=== PATIENT | male | born 1955 | race Caucasian/White ===

== ENCOUNTER 2024-12-27 14:58 | Outpatient (AMB) | payer MEDICARE, SELFPAY ==
--- OUTSIDE RECORDS SUMMARY | 2024-12-27 16:18 | XMS_ITS | Clinical Summary ---
Author Organization [facility] Address [address] [facility] [address] [place] [address] Phone Care Team Providers Care Personal Financial Representative Name Role Phone Aaron Brown MD Unavailable Dana Saunders MD Unavailable [phone] Aaron Durbin MD Unavailable [phone] Pcp, Unknown Primary Care Provider Unavailabl e Allergies Active Allergy Reactions Criticality Noted Date Comments Cat Dander 04/29/2020 Dog Dander 04/29/2020 House Dust Medium 04/29/2020 Gluten Protein Diarrhea,GI Upset,Nausea and/or Vomiting 06/06/2020 Sensitivity House Dust Mite 09/04/2024 Other Reaction(s): Headaches Mold Headaches 09/04/2024 Mold Extracts Medium 04/29/2020 Prednisone Erythema Low 02/25/2021 Medications zinc sulfate (ZINC-15 ORAL) Take by mouth daily. Active ascorbic acid (VITAMIN C ORAL) Take by mouth daily. Active MAGNESIUM ORAL Take by mouth nightly at bedtime. Active metoprolol succinate (TOPROL-XL) 25 MG 24 hr tablet Take 1 tablet (25 mg total) by mouth daily. 30 tablet 2 Active Additional Information Patient taking differently:25 mg Oral2 times daily PRN, Reported on 02/25/2021 apixaban (ELIQUIS) 5 mg tablet Take 5 mg by mouth 2 (two) times a day. Active omeprazole (PRILOSEC) 40 MG capsule Take 1 capsule (40 mg total) by mouth daily. 42 capsule 1 Active fexofenadine (ALTAGRACIA) 60 MG tablet Take 90 mg by mouth daily. Active cholecalciferol (VITAMIN D3) 5,000 unit tablet Take 1,000 Units by mouth daily. Active acetylcysteine (NAC) 600 mg Cap capsule Take 700 mg by mouth every 4 (four) hours. Active cyanocobalamin/f olic ac/vit B6 (HOMOCYSTEINE FORMULA ORAL) Take by mouth. A ctive ashwagandha root extract 500 mg Cap Take by mouth. Activ e inhaler,assist device,med mask (AEROCHAMBER MIS) See Instructions, # 1 kit, Maintenance, Use with inhaler, 05/31/24 3:11:00 PM EST, Supply, 185.42, cm, 05/31/24 15:03:00 EST, Height 5 Active REPATHA SURECLICK 140 mg/mL PnIj subcutaneous pen injector Inject 140 mg under the skin. 5 Active albuterol 90 mcg/actuation inhaler See Instructions, PRN, 2 puffs by mouth every 4-6 hours as needed for wheezing/chest tightness/short ness of breath, # 8.5 Gm, Refills 0, Tot. Refills 0, Maintenance, 05/31/24 3:11:00 PM EST, Instructions Replace Required Details Aerosol, Route to Pharmacy Electronically, [id number], [facility], 185.42, cm, 05/31/24 15:03:00 EST, Height 5 Active ZINC CITRATE ORAL Zinc Citrate Active ashwagandha extract 500 mg Cap as directed Orally Active vitamin B complex/folic acid (B COMPLEX 100 ORAL) Take by mouth. 2 Active amoxicillin (AMOXIL) 500 MG capsule TAKE 4 CAPSULES BY MOUTH ONCE 2 HOURS PRIOR TO DENTAL PROCEDURE for 1 Active aspirin 81 MG EC tablet 1 tablet Orally Once a day 3 Active BROCCOLI SEED LL-JSCIRMU-HGD C ORAL 5 Active cefpodoxime (VANTIN) 200 MG tablet 5 Active curcumin-phospha tidylcholine 500 mg Cap 5 Active doxycycline hyclate (DORYX) 100 MG tablet 5 Active resveratroL 250 mg Cap as directed Orally Active tadalafiL (CIALIS) 5 MG tablet Take 5 mg by mouth. 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 Torre 2010 Seasonal allergies Encounters Date Type Department Care Team Description 11/24/2024 4:[address] [facility] Urology [address] [facility] [place] [address] Andrei Mann MD Adenocarcinoma of prostate (Primary Dx) 11/13/2024 8:23 AM EDT - 11/13/2024 11:59 PM EDT Hospital Encounter [facility] [address] [place] [address] Andrei Mann MD Discharge Disposition: Home or Self Care from Last 3 Months Social History Tobacco Use Types Packs/Day Years Used Date Smoking Tobacco: Never Smokeless Tobacco: Never Tobacco Cessation:Counseling Given: Not Answered Alcohol Use Standard Drinks/Week Comments Yes 5 (1 standard drink = 0.6 oz pur e alcohol) Child or Family Care Answer Date Record ed Do you have problems with on e of the following making it difficult for you to work, study, or receive health care? No 06/28/2024 Education Answer Date Recorded Are you interested in more education? Not on chari e 08/29/2022 Are you concerned about learning? Not on file 08/29/2022 No 08/29/2022 No 08/29/2022 Food Answer Date Recorded Within the past 6 months we worried whether our food would run out before we got money to buy more. Never True 06/28/2024 Within the past 6 months the food we bought just didn't last and we didn't have enough money to get more. Never True Residential Stability Answer Date Recor ded What is your housing situation today? I have juliette anand 06/28/2024 How many times have you move d in the past 12 months? Zero (I did not move) 06/28/2024 Paying for Meds Answer Date Recorded Do you have trouble paying for medicines? No 06/28/2024 Paying Utility Bills Answer Date Record ed Do you have trouble paying your heating or elect ricity bill? No 06/28/2024 Transportation Answer Date Recorded Has the lack of transportati on kept you from medical appointments or from getting medications? No 06/28/2024 Digital Access Answer Date Recorded No 09/25/2022 No 09/25/2022 Reliable internet access at home? Not on file 09/25/2022 Device with a working camera? Not on file Intimate Partner Violence Answer Date R ecorded Are you denied basic needs s uch as food, clothing, or medical care? No 06/20/2022 In the past 12 months have y ou been in a relationship with a person who hurts, threatens, or tries to control you? No 06/20/2022 Are you denied basic needs s uch as food, clothing, or medical care? No 06/20/2022 In the past 12 months have y ou been in a relationship with a person who hurts, threatens, or tries to control you? No 06/20/2022 Sex and Gender Information Value Date Recorded Sex Assigned at Male 04/28/2020 5:24 PM EST Legal Sex Male 5:07 PM EST Gender Identity Male 04/28/2020 5:24 PM EST Sexual Orientation Straight 04/28/2020 5: 24 PM EST Last Filed Vital Signs Vital Sign Reading Time Taken Comments Blood Pressure 146/79 09/04/2024 3:06 PM EDT Pulse 60 09/04/2024 3:06 PM EDT Temperature 36.3 C (97.3 F) 09/04/2024 3:06 PM EDT Respiratory Rate 20 09/04/2024 3:06 PM EDT Oxygen Saturation 99% 09/04/2024 3:06 PM EDT Inhaled Oxygen Concentration 23% 06/10/2020 3 :00 PM EST Weight 79.4 kg (175 lb) 09/04/2024 3:06 PM EDT Height 180.3 cm (5' 11 ) 09/04/2024 3:06 PM EDT Body Mass Index 24.41 09/04/2024 3:06 PM EDT Plan of Treatment Upcoming Encounters Date Type Department Care Team (Late st Contact Info) Description 01/11/2025 8:15 AM EDT Office Visit [facility] [address] [place] [address] Chad Foster DO [address] [facility], [address] [place] [address] 06/04/2025 9:[address] [facility] Urology [address] [facility] [address] [place] [address] Tracy Deal, PABrittonC [address] [place] [address] [email or web address] Health Maintenance Due Date Last Done Comments LIPID PANEL 1954 HEPATITIS C SCREENING 1972 ZOSTER VACCINES (1 of 2) 1973 COLOGUARD 1999 COLONOSCOPY 1999 COLORECTAL CANCER SCREENING 1999 FIT TEST 1999 FOBT 1999 SIGMOIDOSCOPY 1999 VIRTUAL COLONOSCOPY 1999 PNEUMOCOCCAL VACCINES (50+ years) (2 of 2 - PPSV23) 01/22/2020 11/27/2019 DEPRESSION SCREENING 07/20/2021 07/20/2020 Adult Td,Tdap Booster 08/02/2021 08/03/2011 CREATININE LEVEL 03/05/2022 03/05/2021, 04/2021, 06/13/2020, Additional history exists COVID-19 VACCINE ( - 2023- season) 2024 02/27/2021, 07/23/2020, 06/27/2020 RSV VACCINE (1 - 1-dose 75+ series) 2029 HEPATITIS A VACCINES Aged Out 11/07/2020, 11/27/19 20 No longer eligible based on patient's age to complete this topic SMOKING STATUS SCREENING (Once After 26 Yrs) Completed 09/04/2024 HIB VACCINES Aged Out No longer eligi ble based on patient's age to complete this topic MENINGOCOCCAL VACCINES (ACWY) Aged Out No longer eligible based on patient's age to complete this topic MENINGOCOCCAL VACCINES (B) Aged Out N o longer eligible based on patient's age to complete this topic Medical Devices Implanted Type Area [employer] Hr Developer Device Identifier Shelf Expiration Date Model / Serial / Lot Lead Tendril Sts 6fr 58cm Pacing Optim Insulation Ext/Ret [place] Silicone Tip Is-1 Bipolar Connector - [id number] Implanted:Qty: 1 on 06/10/2020 by Vikram Saavedra MD at [facility] Lead Right Ventricle [employer] [id number] 01/30/2023 2088TC/ 58 / [id number] / Lead Tendril Sts 6fr 52cm Pacing Optim Insulation Ext/Ret [place] Silicone Tip Is-1 Bipolar Connector - [id number] Implanted:Qty: 1 on 06/10/2020 by Vikram Saavedra MD at [facility] Lead Right Atrium [employer] [id number] 04/01/2023 2088TC/ 52 / [id number] / Pacemaker Dual Chamber [id number] 20g 10.4cc Is-1 Connector Assurity Mri - [id number] Implanted:Qty: 1 on 06/10/2020 by Vikram Saavedra MD at [facility] Pacemaker Left: Chest Wall [employer] [id number] 06/02/2021 [id number] / [id number] / Valve Heart 33.5x31mm Perimount Magna Mitral Ease Bioprosthesis Porcine [place] Thermafix Pericardial - [id number] Implanted:Qty: 1 on 06/05/2020 by Erwin Lundberg MD at [facility] SMDA N/A: Heart [employer] 10/28/2023 [id number] / [id number] / Ring Annuloplasty 34mm Mc3 Titanium Alloy Silicone Polyester Tricuspid - [id number] Implanted:Qty: 1 on 06/05/[facility] [employer] 08/01/2024 [id number] / [id number] / Envelope Ecm Med Cormatrix Cangaroo Single Pack Pk/1ea - [id number] Implanted:Qty: 1 on 06/10/2020 by Vikram Saavedra MD at [facility] Left: Chest Wall [employer] [id number] 08/23/2021 CMCV-00 9-MED / / [id number] Procedures Procedure Name Priority Date/Time Associated Diagnosis Comments PSA DIAGNOSTIC (MONITORING) Routine 11/13/2024 8:23 AM EDT Prostate cancer BASIC METABOLIC PANEL STAT 03/05/2021 6:32 AM EDT from Last 3 Months or Most Recently Relevant to Health Maintenance Results * (ABNORMAL) PSA diagnostic (monitoring) (11/13/2024 8:23 AM EDT) Pathologist [facility] PSA 8.64(H) 0 - 4.00 ng/mL [facility] Comment: Test Methodology Chato e801 Patient results determined by assays using different manufacturers or methods may not be comparable. Blood 11/13/2024 8:23 AM EDT 11/13/2024 8:25 AM EDT us Andrei Mann MD LAB BLOOD ORDERABLES Final Result [facility] [address] [place] [address] * Basic metabolic panel (03/05/2021 6:32 AM EDT) Pathologist [facility] SODIUM 143 136 - 145 mmol/L [facility] POTASSIUM 4.8 3.4 - 5.1 mmol/L [facility] CHLORIDE 105 98 - 107 mmol/L [facility] CO2 31 22 - 31 mmol/L [facility] BUN 23 6 - 23 mg/dL [facility] CREATININE 1.01 0.50 - 1.20 mg/dL [facility] GLUCOSE 99 70 - 100 mg/dL [facility] CALCIUM 9.8 8.8 - 10.7 mg/dL [facility] EGFR 77 >59 mL/min/1.[address] [facility] Comment:Estimated glomerular filtration rate calculated using the CKD-EPI equation. ANION GAP 7 7 - 17 mmol/L [facility] 03/05/2021 6:32 AM EDT 03/05/2021 6:40 AM EDT Mumtaz Zuniga MD LAB BLOOD ORDERABLES Alison singer Result Performing Organization Address City/State/[facility] de Phone Number [facility] [address] [place] [address] from Last 3 Months or Most Recently Relevant to Health Maintenance Insurance MEDICARE PART A & [place] [id number] [facility] MEDEX SUPPLEMENT MEDICARE PART A & B [employer] MEDEX SUPPLEMENT MEDICARE PART A & B [employer] MEDEX SUPPLEMENT MEDICARE PART A & B [employer] MEDEX SUPPLEMENT MEDICARE PART A & B [employer] MEDEX SUPPLEMENT MEDICARE PART A & B [employer] MEDEX SUPPLEMENT MEDICARE PART A & B [employer] MEDEX SUPPLEMENT MEDICARE PART A & B [employer] MEDEX SUPPLEMENT MEDICARE PART A & B [employer]OSS MEDEX SUPPLEMENT Advance Directives For more information, please contact: [phone] (9AM - 5PM [facility], Wednesday-Wednesday) Documents on File Type Date Recorded Patient Distribution Sales Manager Expl anation Healthcare Proxy 06/05/2020 * Full Code (Latest Code Status on File) Date Activated Date Inactivated Comments 03/05/2021 1:42 PM Question Answer Comments Code Status Confirmed With: Patient * Full Code Date Activated Date Inactivated Comments 03/05/2021 9:18 AM 03/05/2021 1:42 PM Question Answer Comments Code Status Confirmed With: Patient * Full Code Date Activated Date Inactivated Comments 06/10/2020 6:02 PM 03/05/2021 9:18 AM Question Answer Comments Code Status Confirmed With: Patient * Full Code Date Activated Date Inactivated Comments 06/05/2020 7:53 PM 06/10/2020 6:02 PM Question Answer Comments Code Status Confirmed With: Patient Code Status Communicated To: Other (specify belo w) Code Discussion Comments: Prior to OR Healthcare Agents on File Name Relationship Healthcare Agent [facility] p Communication Heidi Callaway Life Partner .Primary Health Care Agent (Proxy form on file) [email or web address] Care Teams Personal Financial Representative Relationship Specialty Start Date End Date Pcp, Unknown PCP - General Urology 11/30/24 Aaron Brown MD [address] [place] [address] Cardiology 06/19/20 Dana Saunders MD [address] [place] [address] [email or web address] Family Medicine 06/30/24 Aaron Durbin MD [address] [place] [address], [address] [place] [address] Urology 06/30/24 Additional Source Comments The information contained in this document represents components of the legal health record. It is not the complete legal health record.[facility]
--- OUTSIDE RECORDS SUMMARY | 2024-12-27 16:18 | XMS_ITS | Encounter Summary ---
Author Organization [facility] Address [address] [facility] [address] [place] [address] Phone Care Team Providers Care Shotgun Shell Reprinting Unit Operator Name Role Phone Dana Saunders MD Primary Care Provider + Aaron Brown MD Unavailable Cherry Wellington NP Primary Care Provider + Cherry Wellington NP Primary Care Provider + Dana Saunders MD Unavailable Aaron Durbin MD Unavailable [phone] Pcp, Unknown Primary Care Provider Unavailabl e Encounter Details Date Type Department Care Team (Late st Contact Info) Description 06/05/2020 Procedure Pass [facility] Echocardiography [address] [place] [address] Social History Tobacco Use Types Packs/Day Years Used Date Smoking Tobacco: Never Smokeless Tobacco: Never Alcohol Use Standard Drinks/Week Comments Yes 5 (1 standard drink = 0.6 oz pur e alcohol) Sex and Gender Information Value Date Recorded Sex Assigned at Male 04/28/2020 5:24 PM EST Legal Sex Male 5:07 PM EST Gender Identity Male 04/28/2020 5:24 PM EST Sexual Orientation Straight 04/28/2020 5: 24 PM EST documented as of this encounter Functional Status * Calculated C-SSRS Risk Score (Lifetime/Recent) Answer Date of Assessment Author No Risk Indicated 06/05/2020 4:00 PM EST Artis North RN * [place] Suicide Severity Rating Scale (Screener/Recent Self-Report) Question Answer Date of Assessment Author 1. Wish to be (Past 1 Month) No 021 4:00 PM Artis Duque RN 2. Non-Specific Active Suici surekha Thoughts (Past 1 Month) No 06/05/2020 4:00 PM EST Timmy Schneider RN 6. Suicidal Behavior (Lifetime) No 4:00 PM Artis Duque RN documented as of this encounter Plan of Treatment Upcoming Encounters Date Type Department Care Team (Late st Contact Info) Description 01/11/2025 8:15 AM EDT Office Visit [facility] Medicine [address] [place] [address] Chad Foster DO [address] [facility], [address] [place] [address] [email or web address] 06/04/2025 9:20 AM EST Telemedicine [facility] Urology [address] [facility] [place] [address] Tracy Deal PA-C [address] [place] [address] [email or web address] documented as of this encounter Visit Diagnoses Not on filedocumented in this encounter Care Teams Shotgun Shell Reprinting Unit Operator Relationship Specialty Start Date End Date Dana Saunders MD [address] [place] [address] [email or web address] PCP - General Family Medicine 10/13/18 06/19/22 Cherry Wellington NP [address] [place] [address] PCP - General Nurse Practitioner 06/20/22 05/25/24 Cherry Wellington NP [address] [place] [address] PCP - General Nurse Practitioner 05/26/24 11/12/24 Pcp, Unknown PCP - General Urology 11/30/24 Aaron Brown MD [address] [place] [address] Cardiology 06/19/20 Dana Saunders MD [address] [place] [address] Family Medicine 06/30/24 Aaron Durbin MD [address] [place] [address], [address] [place] [address] Urology 06/30/24 documented as of this encounter Additional Source Comments The information contained in this document represents components of the legal health record. It is not the complete legal health record.[facility]
--- OUTSIDE RECORDS SUMMARY | 2024-12-27 16:18 | XMS_ITS | Encounter Summary ---
Author Organization [facility] Address [address] [facility] [address] [place] [address] Phone Care Team Providers Care Band Singer Name Role Phone Dana Saunders MD Primary Care Provider + Aaron Brown MD Unavailable Cherry [place] NP Primary Care Provider + Cherry Wellington NP Primary Care Provider + Dana Saunders MD Unavailable Aaron Durbin MD Unavailable [phone] Pcp, Unknown Primary Care Provider Unavailabl e Encounter Details Date Type Department Care Team (Late st Contact Info) Description 06/07/2020 Procedure Pass [facility] Echocardiography [address] [place] [address] Social History Tobacco Use Types Packs/Day Years [...] PM EST documented as of this encounter Plan of Treatment Upcoming Encounters Date Type Department Care Team (Late st Contact Info) Description 01/11/2025 8:15 AM EDT [facility] [place] [facility] [address] [place] [address] Chad Foster DO [address] [facility], [address] [place] [address] [email or web address] 06/04/2025 9:20 AM EST Telemedicine [facility] Urology [address] [facility] [address] [place] [address] Tracy Deal PA-C [address] [place] [address] [email or web address] documented as of this encounter Visit Diagnoses Not on filedocumented in this encounter Care Teams Band Singer Relationship Specialty Start Date End Date Dana Saunders MD [address] [place] [address] [email or web address] PCP - General Family Medicine 10/13/18 06/19/22 Cherry Wellington NP [address] [place] [address] PCP - General Nurse Practitioner 06/20/22 05/25/24 Cherry Wellington NP [address] [place] [address] PCP - General Nurse Practitioner 05/26/24 11/12/24 Pcp, Unknown PCP - General Urology 11/30/24 Aaron Brown MD [address] [place] [address] Cardiology 06/19/20 Dana Saunders MD [address] [place] [address] [email or web address] Family Medicine 06/30/24 Aaron Durbin MD [address] [place] [address], [address] [address] [email or web address] Urology 06/30/24 documented as of this encounter Additional Source Comments The information contained in this document represents components of the legal health record. It is not the complete legal health record.[facility]
--- OUTSIDE RECORDS SUMMARY | 2024-12-27 16:18 | XMS_ITS | Encounter Summary ---
Author Organization [facility] Address [address] [facility] [address] [place] [address] Phone Care Team Providers Care Main Entree Cook And Cashier Name Role Phone Dana Saunders MD Primary Care Provider + Aaron Brown MD Unavailable Cherry Wellington NP Primary Care Provider + Cherry Wellington NP Primary Care Provider + Dana Saunders MD Unavailable Aaron Durbin MD Unavailable [phone] Pcp, Unknown Primary Care Provider Unavailabl e Encounter Details Date Type Department Care Team (Late st Contact Info) Description 06/05/2020 Procedure Pass [facility] Periop [address] [place] [address] Social History Tobacco Use Types Packs/Day Years [...] 4:00 PM EST Artis North RN * [place] Suicide Severity Rating Scale (Screener/Recent Self-Report) Question [...] Description 01/11/2025 8:15 AM EDT Office Visit [facility] Medicine [address] [place] [address] Chad Foster DO [address] [facility], [address] [place] [address] [email or web address] 06/04/2025 9:20 AM EST Telemedicine [facility] Urology [address] [facility] [address] [place] [address] Tracy Deal PA-C [address] [place] [address] [email or web address] documented as of this encounter Visit Diagnoses Not on filedocumented in this encounter Care Teams Main Entree Cook And Cashier Relationship Specialty Start Date End Date Dana Saunders MD [address] [place] [address] [email or web address] PCP - General Family Medicine 10/13/18 06/19/22 Cherry Wellington NP [address] [place] [address] PCP - General Nurse Practitioner 06/20/22 05/25/24 Cherry Wellington NP [address] [place] [address] PCP - General Nurse Practitioner 05/26/24 11/12/24 Pcp, Unknown PCP - General Urology 11/30/24 Aaron Brown MD [address] [place] [address] Cardiology 06/19/20 Dana Saunders MD [address] [place] [address] Family Medicine 06/30/24 Aaron Durbin MD [address] [place] [address], [address] [address] Urology 06/30/24 documented as of this encounter Additional Source Comments The information contained in this document represents components of the legal health record. It is not the complete legal health record.[facility]
--- OUTSIDE RECORDS SUMMARY | 2024-12-27 16:18 | XMS_ITS | Encounter Summary ---
Author Organization [facility] Address [address] [facility] [address] [place] [address] Phone Care Team Providers Care Chemical Laboratory Scientist Name Role Phone Dana Saunders MD Primary Care Provider + Aaron Brown MD Unavailable Cherry Wellington NP Primary Care Provider + Cherry Wellington NP Primary Care Provider + Dana Saunders MD Unavailable [phone] Aaron Durbin MD Unavailable [phone] Pcp, Unknown Primary Care Provider Unavailabl e Encounter Details Date Type Department Care Team (Late st Contact Info) Description 06/10/2020 Procedure Pass [facility] Electrophysiology Lab [address] [place] [address] [id number] Social History Tobacco Use Types Packs/Day Years [...] Description 01/11/2025 8:15 AM EDT Office Visit [facility] [address] [place] [address] Chad Foster DO 234 [facility], [address] [place] [address] [email or web address] 06/04/2025 9:20 AM EST Telemedicine [facility] Urology 45 [facility] [address] [place] [address] Tracy Deal PA-C [address] [place] [address] [email or web address] documented as of this encounter Visit Diagnoses Not on filedocumented in this encounter Care Teams Chemical Laboratory Scientist Relationship Specialty Start Date End Date Dana Saunders MD [address] [place] [address] [email or web address] PCP - General Family Medicine 10/13/18 06/19/22 Cherry Wellington NP [address] [place] [address] PCP - General Nurse Practitioner 06/20/22 05/25/24 Cherry Wellington NP [address] [place] [address] PCP - General Nurse Practitioner 05/26/24 11/12/24 Pcp, Unknown PCP - General Urology 11/30/24 Aaron Brown MD [address] [place] [address] Cardiology 06/19/20 Dana Saunders MD [address] [place] [address] [email or web address] Family Medicine 06/30/24 Aaron Durbin MD [address] [place] [address], [address] [address] [email or web address] Urology 06/30/24 documented as of this encounter Additional Source Comments The information contained in this document represents components of the legal health record. It is not the complete legal health record.[facility]
--- OUTSIDE RECORDS SUMMARY | 2024-12-27 16:19 | XMS_ITS | Encounter Summary ---
Author Organization [facility] Address [address] [facility] [address] [place] [address] Phone Care Team Providers Care Electrical Appliance Servicer Name Role Phone Dana Saunders MD Primary Care Provider + Aaron Brown MD Unavailable Cherry Wellington NP Primary Care Provider + Cherry Wellington NP Primary Care Provider + Dana Saunders MD Unavailable [phone] Aaron Durbin MD Unavailable [phone] Pcp, Unknown Primary Care Provider Unavailabl e Encounter Details Date Type Department Care Team (Late st Contact Info) Description 11/26/2020 Procedure Pass [facility] [address] [place] [address] Social History Tobacco Use Types Packs/Day Years [...] 01/11/2025 8:15 AM EDT Office Visit [facility] Medicine [address] [place] [address] Chad Foster DO 234 [facility], [address] [place] [address] [email or web address] 06/04/2025 9:20 AM EST Telemedicine [facility] Urology 45 [facility] [address]3 [place] [address] Tracy Deal PA-C 75 [place] [address] [email or web address] documented as of this encounter Visit Diagnoses Not on filedocumented in this encounter Care Teams Electrical Appliance Servicer Relationship Specialty Start Date End Date Dana Saunders MD [address] [place] [address] [email or web address] PCP - General Family Medicine 10/13/18 06/19/22 Cherry Wellington NP [address] [place] [address] PCP - General Nurse Practitioner 06/20/22 05/25/24 Cherry Wellington NP [address] [place] [address] PCP - General Nurse Practitioner 05/26/24 11/12/24 Pcp, Unknown PCP - General Urology 11/30/24 Aaron Brown MD [address] [place] [address] Cardiology 06/19/20 Dana Saunders MD [address] [place] [address] [email or web address] Family Medicine 06/30/24 Aaron Durbin MD [address] [place] [address], [address] [place] [address] [email or web address] Urology 06/30/24 documented as of this encounter Additional Source Comments The information contained in this document represents components of the legal health record. It is not the complete legal health record.[facility]
--- OUTSIDE RECORDS SUMMARY | 2024-12-27 16:19 | XMS_ITS | Encounter Summary ---
Author Organization [facility] Address [address] [facility] [address] [place] [address] Phone Care Team Providers Care Locker Room Supervisor Name Role Phone Dana Saunders MD Primary Care Provider + Aaron Brown MD Unavailable Cherry Wellington NP Primary Care Provider + Cherry Wellington NP Primary Care Provider + Dana Saunders MD Unavailable [phone] Aaron Durbin MD Unavailable [phone] Pcp, Unknown Primary Care Provider Unavailabl e Encounter Details Date Type Department Care Team (Late st Contact Info) Description 03/03/2021 Procedure Pass [facility] 70 [place] [address] Social History Tobacco Use Types Packs/Day Years [...] 01/11/2025 8:15 AM EDT Office Visit [facility] Medicine [address] [place] [address] Chad Foster DO 234 [facility], [address] [place] [address] [email or web address] 06/04/2025 9:20 AM EST Telemedicine [facility] Urology 45 [facility] [address] [place] [address] Tracy Deal PA-C 75 [place] [address] [email or web address] documented as of this encounter Visit Diagnoses Not on filedocumented in this encounter Care Teams Locker Room Supervisor Relationship Specialty Start Date End Date Dana Saunders MD [address] [place] [address] [email or web address] PCP - General Family Medicine 10/13/18 06/19/22 Cherry Wellington NP [address] [place] [address] PCP - General Nurse Practitioner 06/20/22 05/25/24 Cherry Wellington NP [address] [place] [address] PCP - General Nurse Practitioner 05/26/24 11/12/24 Pcp, Unknown PCP - General Urology 11/30/24 Aaron Brown MD [address] [place] [address] Cardiology 06/19/20 Dana Saunders MD [address] [place] [address] [email or web address] Family Medicine 06/30/24 Aaron Durbin MD [address] [place] [address], [address] [place] [address] [email or web address] Urology 06/30/24 documented as of this encounter Additional Source Comments The information contained in this document represents components of the legal health record. It is not the complete legal health record.[facility]
--- OUTSIDE RECORDS SUMMARY | 2024-12-27 16:19 | XMS_ITS | Encounter Summary ---
Author Organization [facility] Address [address] [facility] [address] [place] [address] Phone Care Team Providers Care Play Therapist Name Role Phone Dana Saunders MD Primary Care Provider + Aaron Brown MD Unavailable Cherry Wellington NP Primary Care Provider + Cherry Wellington NP Primary Care Provider + Dana Saunders MD Unavailable [phone] Aaron Durbin MD Unavailable [phone] Pcp, Unknown Primary Care Provider Unavailabl e Reason for Referral * MRI/CAT Scan - Closed Specialty Diagnoses / Procedures Referred By Aki t Referred To Contact Radiology Diagnoses Persistent atrial fibrillation Procedures CT 3D Reconstruction CT Angio Chest Mumtaz Zuniga MD Phone: tel: fax: mailto:[email or web address] Referral ID Status Reason Start Date Expiration Date Visits Re quested Visits Authorized [id number] Closed 03/03/2021 03/03/2022 1 1 Encounter Details Date Type Department Care Team (Latest Contact Info) Description 03/03/2021 Ancillary Orders [facility] Cardiovascular Clinic [address] [place] [address] Mumtaz Zuniga MD 70 [place] [address] [email or web address] Persistent atrial fibrillation Social History Tobacco Use Types Packs/Day Years [...] Description 01/11/2025 8:15 AM EDT Office Visit [facility] [address] [place] [address] Chad Foster DO 234 [facility], [address] [place] [address] 06/04/2025 9:20 AM EST Telemedicine [facility] Urology 45 [facility] [address]B2-3 [place] [address] Tracy Deal PA-C 75 [place] [address] [email or web address] documented as of this encounter Results * CT 3D Reconstruction CT Angio Chest (03/03/2021 10:41 AM EDT) Anatomical Region Laterality Modality Chest Computed Tomogra phy 03/03/2021 10:5 2 AM EDT Impressions 03/03/2021 2:37 PM EDT 1. There are 2 right and 2 left pulmonary veins. 2. Esophagus courses midline 3. Status post left atrial appendage ligation/closure. Opacification of the chamber via a tiny orifice. There is no left atrial appendage thrombus. ATTESTATION: Jose Francisco Frances, as teaching physician have reviewed the images, if any, for this patient's exam, and if necessary, have edited the report originally created by Jony Cheatham. Narrative 03/03/2021 2:37 PM EDT Reason for exam (per EHR order): Pre-Op TECHNIQUE: Cardiac CT Angiography TECHNIQUE: CT Angiography Scans: Angiogram - ECG gated Cardiac Delay (60 sec) - ECG gated Cardiac Oral contrast: None. Intravenous contrast: 75 mL 3D Post-processing: MIPS COMPARISON: None. FINDINGS: CARDIAC: Pulmonary Veins: There are 2 right and 2 left pulmonary veins which share a common trunk. The esophagus courses midline. Left atrial appendage: There is no evidence of left atrial appendage thrombus on arterial or delayed phase imaging. Other Cardiac Findings: Coronary Arteries: This study was not optimized for the assessment of the coronary arteries. Chambers: Moderate biatrial enlargement. Status post left atrial appendage ligation. Myocardium: Normal thickness. No out-pouchings or masses. Valves: s/p bioprosthetic MVR, tricuspid valve repair. No thrombus or pannus formation. The aortic valve is thickened and trileaflet. Pericardium: No pericardial effusion, calcification or thickening. Aorta: Mild aneurysmal dilation of the ascending aorta, measures 4.0 cm. Pulmonary arteries: No enlargement. No central pulmonary embolism. Non-Cardiac Findings: Bibasilar atelectasis. Previously seen nodule in the right lung base is not visualized anymore. Procedure Note Jose Francisco Boggs MD - 03/03/2021 Reason for exam (per EHR order): Pre-Op TECHNIQUE: Cardiac CT Angiography TECHNIQUE: CT Angiography Scans: Angiogram - ECG gated Cardiac Delay (60 sec) - ECG gated Cardiac Oral contrast: None. Intravenous contrast: 75 mL 3D Post-processing: MIPS COMPARISON: None. FINDINGS: CARDIAC: Pulmonary Veins: There are 2 right and 2 left pulmonary veins which sharea common trunk. The esophagus courses midline. Left atrial appendage: There is no evidence of left atrial appendagethrombus on arterial or delayed phase imaging. Other Cardiac Findings: Coronary Arteries: This study was not optimized for the assessment of thecoronary arteries. Chambers: Moderate biatrial enlargement. Status post left atrial appendageligation. Myocardium: Normal thickness. No out-pouchings or masses. Valves: s/p bioprosthetic MVR, tricuspid valve repair. No thrombus orpannus formation. The aortic valve is thickened and trileaflet. Pericardium: No pericardial effusion, calcification or thickening. Aorta: Mild aneurysmal dilation of the ascending aorta, measures 4.0 cm. Pulmonary arteries: No enlargement. No central pulmonary embolism. Non-Cardiac Findings: Bibasilar atelectasis. Previously seen nodule inthe right lung base is not visualized anymore. IMPRESSION: 1. There are 2 right and 2 left pulmonary veins. 2. Esophagus courses midline 3. Status post left atrial appendage ligation/closure. Opacification ofthe chamber via a tiny orifice. There is no left atrial appendagethrombus. ATTESTATION: Jose Francisco Frances, as teaching physician have reviewed theimages, if any, for this patient's exam, and if necessary, have edited thereport originally created by Jony Cheatham. us Mumtaz Zuniga MD IMG CT Final Res ult documented in this encounter Visit Diagnoses Diagnosis Persistent atrial fibrillation Atrial fibrillation Persistent atrial fibrillation Atrial fibrillation documented in this encounter Care Teams Play Therapist Relationship Specialty Start Date End Date Dana Saunders MD [address] [place] [address] PCP - General Family Medicine 10/13/18 06/19/22 Cherry Wellington NP [address] [place] [address] PCP - General Nurse Practitioner 06/20/22 05/25/24 Cherry Wellington NP [address] [place] [address] PCP - General Nurse Practitioner 05/26/24 11/12/24 Pcp, Unknown PCP - General Urology 11/30/24 Aaron Brown MD [address] [place] [address] Cardiology 06/19/20 Dana Saunders MD [address] [place] [address] [email or web address] Family Medicine 06/30/24 Aaron Durbin MD [address] [place] [address], [address] [place] [address] [email or web address] Urology 06/30/24 documented as of this encounter Additional Source Comments The information contained in this document represents components of the legal health record. It is not the complete legal health record.[facility]
--- OUTSIDE RECORDS SUMMARY | 2024-12-27 16:19 | XMS_ITS | Encounter Summary ---
Author Organization [facility] Address [address] [facility] [address] [place] [address] Phone Care Team Providers Care Hospitalist Program Director Name Role Phone Dana Saunders MD Primary Care Provider + Aaron Brown MD Unavailable Cherry Wellington NP Primary Care Provider + Cherry Wellington NP Primary Care Provider + Dana Saunders MD Unavailable [phone] Aaron Durbin MD Unavailable [phone] Pcp, Unknown Primary Care Provider Unavailabl e Encounter Details Date Type Department Care Team (Late st Contact Info) Description 03/05/2021 Procedure Pass [facility] Electrophysiology Lab [address] [place] [address] [phone] Social History Tobacco Use Types Packs/Day Years [...] 01/11/2025 8:15 AM EDT Office Visit [facility] [address] [place] [address] Chad Foster DO 234 [facility], [address] [place] [address] [email or web address] 06/04/2025 9:20 AM EST Telemedicine [facility] Urology 45 [facility] [address] [place] [address] Tracy Deal PA-C [address] [place] [address] [email or web address] documented as of this encounter Visit Diagnoses Not on filedocumented in this encounter Care Teams Hospitalist Program Director Relationship Specialty Start Date End Date Dana Saunders MD [address] [place] [address] [email or web address] PCP - General Family Medicine 10/13/18 06/19/22 Cherry Wellington NP [address] [place] [address] PCP - General Nurse Practitioner 06/20/22 05/25/24 Cherry Wellington NP [address] [place] [address] PCP - General Nurse Practitioner 05/26/24 11/12/24 Pcp, Unknown PCP - General Urology 11/30/24 Aaron Brown MD [address] [place] [address] Cardiology 06/19/20 Dana Saunders MD [address] [place] [address] [email or web address] Family Medicine 06/30/24 Aaron Durbin MD [address] [place] [address], [address] [address] [email or web address] Urology 06/30/24 documented as of this encounter Additional Source Comments The information contained in this document represents components of the legal health record. It is not the complete legal health record.[facility]
--- OUTSIDE RECORDS SUMMARY | 2024-12-27 16:19 | XMS_ITS | Encounter Summary ---
Author Organization [facility] Address [address] [facility] [address] [place] [address] Phone Care Team Providers Care Parking Regulation Enforcement Officer Name Role Phone Aaron Brown MD Unavailable Cherry Wellington PERSONNEL RECORDS CLERK Primary Care Provider + Cherry Wellington NP Primary Care Provider + Dana Saunders MD Unavailable Aaron Durbin MD Unavailable [phone] Pcp, Unknown Primary Care Provider Unavailabl e Encounter Details Date Type Department Care Team (Latest Contact Info) Description 11/02/2022 Transcribe Orders [facility] Cardiovascular Clinic [address] [place] [address] [address] [place] [address] [email or web address] Cardiac pacemaker in situ (Primary Dx) Social History Tobacco Use Types Packs/Day Years Used Date Smoking Tobacco: Never Smokeless Tobacco: Never Alcohol Use Standard Drinks/Week Comments Yes 5 (1 standard drink = 0.6 oz pur e alcohol) Education Answer Date Recorded Are you interested in more education? Not on chari e 08/29/2022 Are you concerned about learning? Not on file 08/29/2022 No 08/29/2022 No 08/29/2022 Digital Access Answer Date Recorded No 09/25/2022 [...] Description 01/11/2025 8:15 AM EDT Office Visit [facility] [address] [place] [address] Chad Foster DO 234 [facility], [address] [place] [address] 06/04/2025 9:20 AM EST Telemedicine [facility] Urology 45 [facility] [address] [place] [address] Tracy Deal PA-C [address] [place] [address] [email or web address] documented as of this encounter Visit Diagnoses Diagnosis Cardiac pacemaker in situ- Primary documented in this encounter Care Teams Parking Regulation Enforcement Officer Relationship Specialty Start Date End Date Cherry Wellington NP [address] [place] [address] PCP - General Nurse Practitioner 06/20/22 05/25/24 Cherry Wellington NP [address] [place] [address] PCP - General Nurse Practitioner 05/26/24 11/12/24 Pcp, Unknown PCP - General Urology 11/30/24 Aaron Brown MD [address] [place] [address] Cardiology 06/19/20 Dana Saunders MD [address] [place] [address] [email or web address] Family Medicine 06/30/24 Aaron Durbin MD [address] [place] [address], [address] [address] Urology 06/30/24 documented as of this encounter Additional Source Comments The information contained in this document represents components of the legal health record. It is not the complete legal health record.[facility]
--- OUTSIDE RECORDS SUMMARY | 2024-12-27 16:19 | XMS_ITS | Encounter Summary ---
Author Organization [facility] Address [address] [facility] [address] [place] [address] Phone Care Team Providers Care Appeals Reviewer Veteran Name Role Phone Dana Saunders MD Primary Care Provider + Aaron Brown MD Unavailable Cherry Wellington NP Primary Care Provider + Cherry Wellington NP Primary Care Provider + Dana Saunders MD Unavailable [phone] Aaron Durbin MD Unavailable [phone] Pcp, Unknown Primary Care Provider Unavailabl e Encounter Details Date Type Department Care Team (Latest Contact Info) Description 06/11/2020 Transcribe Orders [facility] Echocardiography [address] [place] [address] Mary Reynolds [address] [place] [address] [email or web address] Cardiac arrhythmia, unspecified cardiac arrhythmia type (Primary Dx) Social History Tobacco Use Types [...] Description 01/11/2025 8:15 AM EDT Office Visit [facility] Medicine [address] [place] [address] Chad Foster DO 234 [facility], [address] [place] [address] 06/04/2025 9:20 AM EST Telemedicine [facility] Urology 45 [facility] [address]-3 [place] [address] Tracy Deal PA-C [address] [place] [address] [email or web address] documented as of this encounter Procedures Procedure Name Priority Date/Time Associated Diagnosis Comments ECG 12-LEAD Routine 06/11/2020 6:00 AM EST Cardiac arrhythmia, unspecified cardiac arrhythmia type ECG 12-LEAD Routine 06/08/2020 10:02 AM EST Cardiac arrhythmia, unspecified cardiac arrhythmia type ECG 12-LEAD Routine 06/08/2020 5:22 AM EST Cardiac arrhythmia, unspecified cardiac arrhythmia type documented in this encounter Results * ECG 12-LEAD (06/11/2020 6:00 AM EST) Ventricular Rate EKG/MIN 79 BPM [facility] Atrial Rate 79 BPM [facility] AR Interval 168 ms [facility] QRS Duration 158 ms [facility] QT Interval 454 ms [facility] QTC Interval 520 ms [facility] P Shelby 39 degrees [facility] R Wave Shelby -69 degrees [facility] T Wave Shelby 95 degrees [facility] 06/11/2020 6:00 AM EST Narrative [facility] - 06/11/2020 2:14 PM EST Atrial-sensed ventricular-paced rhythm Abnormal ECG When compared with ECG of 11-JUN-2020 06:00, (unconfirmed) No significant change was found us Parinita Leonard Dherange MBBS ECG ORDERABLES Alison l Result Performing Organization Address [facility] Co de Phone Number [facility] * ECG 12-LEAD (06/08/2020 10:02 AM EST) Systolic Blood Pressure 108 mmHg [facility] Diastolic Blood Pressure 61 mmHg [facility] Ventricular Rate EKG/MIN 51 BPM [facility] Atrial Rate 67 BPM [facility] QRS Duration 94 ms [facility] QT Interval 432 ms [facility] QTC Interval 398 ms [facility] P Shelby 67 degrees [facility] R Wave Shelby 75 degrees [facility] T Wave Shelby -40 degrees [facility] 06/08/2020 10:0 2 AM EST Narrative [facility] - 06/11/2020 2:11 PM EST Sinus rhythm with A-V dissociation and Junctional rhythm with Sinus/atrial capture Occasional Premature ventricular complexes possible paced beats. ST and T wave abnormality, consider inferior ischemia ST and T wave abnormality, consider anterolateral ischemia Abnormal ECG When compared with ECG of 08-JUN-2020 05:22, (unconfirmed) No significant change [email or web address] Parinita Leonard Dherange MBBS ECG ORDERABLES Alison l Result Performing Organization Address [facility] Co de Phone Number [facility] * ECG 12-LEAD (06/08/2020 5:22 AM EST) Systolic Blood Pressure 103 mmHg [facility] Diastolic Blood Pressure 56 mmHg [facility] Ventricular Rate EKG/MIN 37 BPM [facility] QRS Duration 186 ms [facility] QT Interval 520 ms [facility] QTC Interval 408 ms [facility] R Wave Shelby -51 degrees [facility] T Wave Shelby 110 degrees [facility] 06/08/2020 5:22 AM EST Narrative [facility] - 06/11/2020 2:04 PM EST Third degree AV block with possible pacing present Left axis deviation Left bundle branch block Abnormal ECG When compared with ECG of 07-JUN-2020 20:38, (unconfirmed) Left bundle branch block is now Present us Parinita Leonard Dherange MBBS ECG ORDERABLES Alison l Result [facility] documented in this encounter Visit Diagnoses Diagnosis Cardiac arrhythmia, unspecified cardiac arrhythmia type- Primary documented in this encounter Care Teams Appeals Reviewer Veteran Relationship Specialty Start Date End Date Dana Saunders MD [address] [place] [address] [email or web address] PCP - General Family Medicine 10/13/18 06/19/22 Cherry Wellington NP [address] [place] [address] PCP - General Nurse Practitioner 06/20/22 05/25/24 Cherry Wellington NP [address] [place] [address] PCP - General Nurse Practitioner 05/26/24 11/12/24 Pcp, Unknown PCP - General Urology 11/30/24 Aaron Brown MD [address] [place] [address] Cardiology 06/19/20 Dana Saunders MD [address] [place] [address] [email or web address] Family Medicine 06/30/24 Aaron Durbin MD [address] [place] [address], [address] [address] [email or web address] Urology 06/30/24 documented as of this encounter Additional Source Comments The information contained in this document represents components of the legal health record. It is not the complete legal health record.[facility]
--- OUTSIDE RECORDS SUMMARY | 2024-12-27 16:19 | XMS_ITS | Encounter Summary ---
Author Organization [facility] Address [address] [facility] [address] [place] [address] Phone Care Team Providers Care Braker Passenger Train Name Role Phone Dana Saunders MD Primary Care Provider + Aaron Brown MD Unavailable Cherry Wellington NP Primary Care Provider + Cherry Wellington NP Primary Care Provider + Dana Saunders MD Unavailable Aaron Durbin MD Unavailable [phone] Pcp, Unknown Primary Care Provider Unavailabl e Encounter Details Date Type Department Care Team (Late st Contact Info) Description 11/26/[address] [facility] Electrophysiology Lab [address] [place] [address] [phone] Social History Tobacco Use Types Packs/Day Years [...] 01/11/2025 8:15 AM EDT Office Visit [facility] [address] [place] [address] Chad Foster DO 234 [facility], [address] [place] [address] [email or web address] 06/04/2025 9:[address] [facility] Urology 45 [facility] [address] [place] [address] Tracy Deal PA-C [address] [place] [address] [email or web address] documented as of this encounter Visit Diagnoses Not on filedocumented in this encounter Care Teams Braker Passenger Train Relationship Specialty Start Date End Date Dana Saunders MD [address] [place] [address] [email or web address] PCP - General Family Medicine 10/13/18 06/19/22 Cherry Wellington NP [address] [place] [address] PCP - General Nurse Practitioner 06/20/22 05/25/24 Cherry Wellington NP [address] [place] [address] PCP - General Nurse Practitioner 05/26/24 11/12/24 Pcp, Unknown PCP - General Urology 11/30/24 Aaron Brown MD [address] [place] [address] Cardiology 06/19/20 Dana Saunders MD [address] [place] [address] [email or web address] Family Medicine 06/30/24 Aaron Durbin MD [address] [place] [address], [address] [address] [email or web address] Urology 06/30/24 documented as of this encounter Additional Source Comments The information contained in this document represents components of the legal health record. It is not the complete legal health record.[facility]
--- OUTSIDE RECORDS SUMMARY | 2024-12-27 16:19 | XMS_ITS | Encounter Summary ---
Author Organization [facility] Address [address] [facility] [address] [place] [address] Phone Care Team Providers Care Base Wad Operator Adjuster Name Role Phone Dana Saunders MD Primary Care Provider + Aaron Brown MD Unavailable Cherry Wellington NP Primary Care Provider + Cherry Wellington NP Primary Care Provider + Dana Saunders MD Unavailable [phone] Aaron Durbin MD Unavailable Pcp, Unknown Primary Care Provider Unavailabl e Reason for Referral * Consultation (Within 3 days (urgent)) - Closed Specialty Diagnoses / Procedures Referred By Aki t Referred To Contact Mumtaz Zuniga MD Phone: tel: fax: mailto:[email or web address] [address] [address] Phone: tel: Referral ID Status Reason Start Date Expiration Date Visits Re quested Visits Authorized [id number] Closed 02/25/2021 02/25/2022 1 1 Encounter Details Date Type Department Care Team (Late Contact Info) Description 02/25/2021 Telephone [facility] Electrophysiology Lab [address] [place] [address] Cecile Zhou, LIBERTY [address] [place] [phone] [email or web address] Social History Tobacco Use Types Packs/Day Years [...] Description 01/11/2025 8:15 AM EDT Office Visit [facility] [address] [place] [address] Chad Foster DO 234 [facility], [address] [place] [address] [email or web address] 06/04/2025 9:20 AM EST Telemedicine [facility] Urology 45 [facility] [address]B2-3 [place] [address] Tracy Deal PA-C 75 [place] [address] [email or web address] Scheduled Referrals Name Type Priority Associated Diagnoses Order Schedule Ambulatory referral to [facility] Urgent COVID Testing (ED) Outpatient Referral Routine Ordered: 02/25/2021 documented as of this encounter Visit Diagnoses Not on filedocumented in this encounter Care Teams Base Wad Operator Adjuster Relationship Specialty Start Date End Date Dana Saunders MD [address] [place] [address] [email or web address] PCP - General Family Medicine 10/13/18 06/19/22 Cherry Wellington, ANAHI [address] [place] [address] PCP - General Nurse Practitioner 06/20/22 05/25/24 Cherry Wellington NP [address] [place] [address] PCP - General Nurse Practitioner 05/26/24 11/12/24 Pcp, Unknown PCP - General Urology 11/30/24 Aaron Brown MD [address] [place] [address] Cardiology 06/19/20 Dana Saunders MD [address] [place] [address] [email or web address] Family Medicine 06/30/24 Aaron Durbin MD [address] [place] [address], [address] [address] [email or web address] Urology 06/30/24 documented as of this encounter Additional Source Comments The information contained in this document represents components of the legal health record. It is not the complete legal health record.[facility]
--- OUTSIDE RECORDS SUMMARY | 2024-12-27 16:19 | XMS_ITS | Encounter Summary ---
Author Organization [facility] Address [address] [facility] [address] [place] [address] Phone Care Team Providers Care Stroboroma Operator Name Role Phone Dana Saunders MD Primary Care Provider + Aaron Brown MD Unavailable Cherry Wellington NP Primary Care Provider + Cherry Wellington NP Primary Care Provider + Dana Saudners MD Unavailable [phone] Aaron Durbin MD Unavailable [phone] Pcp, Unknown Primary Care Provider Unavailabl e Encounter Details Date Type Department Care Team (Late st Contact Info) Description 05/06/2020 Procedure Pass [facility] Radiology [address] [place] [address] Social History Tobacco Use Types Packs/Day Years Used Date Smoking Tobacco: Former Smokeless Tobacco: Never Alcohol Use Standard Drinks/Week [...] 01/11/2025 8:15 AM EDT Office Visit [facility] Medicine [address] [place] [address] Chad Foster DO 234 [facility], [address] [place] [address] [email or web address] 06/04/2025 9:20 AM EST Telemedicine [facility] Urology 45 [facility] [address] [place] [address] Tracy Deal PA-C [address] [place] [address] [email or web address] documented as of this encounter Visit Diagnoses Not on filedocumented in this encounter Care Teams Stroboroma Operator Relationship Specialty Start Date End Date Dana Saunders MD [address] [place] [address] [email or web address] PCP - General Family Medicine 10/13/18 06/19/22 Cherry Wellington NP [address] [place] [address] PCP - General Nurse Practitioner 06/20/22 05/25/24 Cherry Wellington NP [address] [place] [address] PCP - General Nurse Practitioner 05/26/24 11/12/24 Pcp, Unknown PCP - General Urology 11/30/24 Aaron Brown MD [address] [place] [address] Cardiology 06/19/20 Dana Saunders MD [address] [place] [address] [email or web address] Family Medicine 06/30/24 Aaron Durbin MD [address] [place] [address], [address] [place] [address] [email or web address] Urology 06/30/24 documented as of this encounter Additional Source Comments The information contained in this document represents components of the legal health record. It is not the complete legal health record.[facility]
--- OUTSIDE RECORDS SUMMARY | 2024-12-27 16:19 | XMS_ITS | Encounter Summary ---
Author Organization [facility] Address [address] [facility] [address] [place] [address] Phone Care Team Providers Care Solderer Production Line Name Role Phone Dana Saunders MD Primary Care Provider + Aaron Brown MD Unavailable Cherry Wellington NP Primary Care Provider + Cherry Wellington NP Primary Care Provider + Dana Saunders MD Unavailable Aaron Durbin MD Unavailable [phone] Pcp, Unknown Primary Care Provider Unavailabl e Encounter Details Date Type Department Care Team (Late st Contact Info) Description 06/08/2020 Procedure Pass [facility] Electrophysiology Lab [address] [place] [address] [phone] Social History Tobacco Use Types Packs/Day Years [...] 01/11/2025 8:15 AM EDT Office Visit [facility] [address] [place] [address] Chad Foster DO 234 [facility], [address] [place] [address] [email or web address] 06/04/2025 9:20 AM EST Telemedicine [facility] Urology 45 [facility] [address]B2-[address] [place] [address] Tracy Deal PA-C [address] [place] [address] [email or web address] documented as of this encounter Visit Diagnoses Not on filedocumented in this encounter Care Teams Solderer Production Line Relationship Specialty Start Date End Date Dana Saunders MD [address] [place] [address] [email or web address] PCP - General Family Medicine 10/13/18 06/19/22 Cherry Wellington NP [address] [place] [address] PCP - General Nurse Practitioner 06/20/22 05/25/24 Cherry Wellington NP [address] [place] [address] PCP - General Nurse Practitioner 05/26/24 11/12/24 Pcp, Unknown PCP - General Urology 11/30/24 Aaron Brown MD [address] [place] [address] Cardiology 06/19/20 Dana Saunders MD [address] [place] [address] [email or web address] Family Medicine 06/30/24 Aaron Durbin MD [address] [place] [address], [address] [address] [email or web address] Urology 06/30/24 documented as of this encounter Additional Source Comments The information contained in this document represents components of the legal health record. It is not the complete legal health record.[facility]
== END 2024-12-27 15:01 | disposition home or self-care (01) ==
PROVIDERS: Visit Provider Registered Nurse Emergency
DX: J30.89 Other allergic rhinitis (principal)
CPT/HCPCS: 95117; 95165

== ENCOUNTER 2025-04-09 11:02 | Outpatient (AMB) | payer MEDICARE, SELFPAY | END 2025-04-09 11:02 | disposition home or self-care (01) | LOC: HO.HMGAL 11:02 | PROVIDERS: PCP Family Medicine; Visit Provider Registered Nurse Emergency | DX: J30.89 Other allergic rhinitis (principal) | CPT/HCPCS: 95117; 95165 ==